=== PATIENT | female | born 1955 | race Caucasian/White ===

== ENCOUNTER 2022-01-22 15:58 | Emergency (ER) | payer MEDICARE, BC ==
[2022-01-22] MEDS ORDERED: Famotidine 20 MG TAB ONE (16:27)
[2022-01-22] MEDS ORDERED: methylPREDNISolone Sod Succ/PF 125 MG/2 ML VIAL ONE (16:27)
== END 2022-01-22 16:53 | disposition home or self-care (01) ==
LOC: BURERS 15:58
DX: J45.909 Unspecified asthma, uncomplicated (principal); E03.9 Hypothyroidism, unspecified
CPT/HCPCS: 96372; 99283; J2930